=== PATIENT | female | born 1985 | race Asian ===

== ENCOUNTER 2017-05-27 12:58 | Emergency (ER) | payer OTHER ==
[2017-05-27] MEDS ORDERED: Ondansetron INJ* 2 MG/ML VIAL IV ONE (13:17)
[2017-05-27] MEDS ORDERED: Morphine INJ* 2 MG/ML 1 ML CARPUJECT IV ONE (13:17)
[2017-05-27] MEDS ORDERED: NS 0.9% 1000 ML* 1,000 ML IV ONE ×2 (13:24→14:04)
[2017-05-27] MEDS ORDERED: Metoclopramide IV* 5 MG/ML 2 ML VIAL IV SLOW PU ONE (13:25)
[2017-05-27 13:53] LABS: Hematocrit 36 % (35-47); Hemoglobin 12.1 g/dl (12.0-16.0); Mean Corpuscular HGB Conc 34 g/dl (31-36); Mean Corpuscular Hemoglobin 32 pg (27-31); Mean Corpuscular Volume 93 fL (80-97); Mean Platelet Volume 8 um3 (7.4-10.4); Red Blood Count 3.84 10^6/ul (4.0-5.4); Red Cell Distribution Width 14 % (10.5-15); White Blood Count 12.6 10^3/ul (3.5-10.8)
[2017-05-27 13:54] LABS: Add Diff/Slide Review? Slide Review Added; Comments Flag Yes
[2017-05-27 14:04] LABS: Albumin 3.5 g/dL (3.2-5.2); BUN/Creatinine Ratio 17.4 (8-20); C Reactive Protein 1.18 mg/L (< 5.00); Calcium 8.9 mg/dL (8.6-10.3); EGFR African American 201.2 (>60); EGFR Non-African American 156.4 (>60); Globulin 2.9 g/dL (2-4); Potassium 3.4 mmol/L (3.5-5.0); Total Bilirubin 0.4 mg/dL (0.2-1.0); Total Protein 6.4 g/dL (6.4-8.9)
--- NOTE | 2017-05-27 14:45 | ED ---
- HPI Summary HPI Summary: Patient is 34 weeks who presents to the ED with CC of dizziness and nausea since this morning with 1x vomiting. She denies hx of such in her . Denies sick contacts or travel. Denies muscle aches, C/D. Denies cold symptoms including rhinnorhea, cough, chest discomfort, back pain or urinary symptoms. She has been otherwise healthy and has had a healthy . Hx of diabetes, but this is controlled. Never a history of hypotension. Denies vaginal bleeding. OBGYN is Dr. Pat. Continues to feel movement. Eating and drinking OK. - History of Current Complaint Chief Complaint: EDNauseaVomitDiarrh Stated Complaint: 32WKS PREG/VOMITING/DIZZY Time Seen by Provider: 05/27/17 13:05 Hx Obtained From: Patient Onset/Duration: Started Hours Ago Timing: Constant Severity: Mild Current Severity: Moderate Pain Intensity: 0 Location of Pain: None Character: None Associated Signs and Symptoms: Positive: Negative - Assessment SAB: 0 IEA: 0 - Additional Pertinent History Maternal Blood Type and Rh: O Positive - Allergies/Home Medications Allergies/Adverse Reactions: Allergies Allergy/AdvReac Type Severity Reaction Status Date / Time No Known Allergies Allergy Verified 05/27/17 13:11 PMH/Surg Hx/FS Hx/Imm Hx Previously Healthy: Yes - Surgical History Surgery Procedure, Year, and Place: - Immunization History Hx Pertussis Vaccination: No Immunizations Up to Date: Unable to Obtain/Confirm Infectious Disease History: No Infectious Disease History: Denies: Traveled Outside the [place] in Last 30 Days - Social History Occupation: Unemployed Lives: With Family Alcohol Use: None Hx Substance Use: No Substance Use Type: Reports: None Hx Tobacco Use: No Smoking Status (MU): Never Smoked Tobacco Review of Systems Constitutional: Negative Negative: Fever, Chills, Fatigue Eyes: Negative Respiratory: Negative Positive: Nausea. Negative: Abdominal Pain, Vomiting, Diarrhea Genitourinary: Negative Positive: no symptoms reported, see HPI Musculoskeletal: Negative Neurological: Other - dizziness Psychological: Normal All Other Systems Reviewed And Are Negative: Yes Physical Exam - Physical Exam Triage Information Reviewed: Yes Vital Signs Reviewed: Yes Appearance: Positive: Well-Appearing, Well-Nourished Skin: Positive: Warm, Skin Color Reflects Adequate Perfusion Head/Face: Positive: Normal Head/Face Inspection Neck: Positive: Supple, No Lymphadenopathy Respiratory/Lung Sounds: Positive: Clear to Auscultation, Breath Sounds Present Cardiovascular: Positive: RRR, Pulses are Symmetrical in both Upper and Lower Extremities Musculoskeletal: Positive: Normal, Strength/ROM Intact Neurological: Positive: Sensory/Motor Intact, Alert, Oriented to Person Place, Time, Speech Normal Psychiatric: Positive: Normal AVPU Assessment: Alert Diagnostics - Vital Signs Vital Signs Temp Pulse Resp BP Pulse Ox 05/27/17 14:04 80 17 79/41 96 05/27/17 14:00 78 15 65/43 96 05/27/17 13:30 80 5 96/58 94 05/27/17 13:12 90 18 98 05/27/17 13:11 114/61 05/27/17 13:00 98.2 F 67 16 101/59 100 - Laboratory Lab Results: Lab Results 05/27/17 05/27/17 05/27/17 Range/Units 13:40 13:40 13:40 WBC 12.6 H (3.5-10.8) 10^3/ul RBC 3.84 L (4.0-5.4) 10^6/ul Hgb 12.1 (12.0-16.0) g/dl Hct 36 (35-47) % MCV 93 (80-97) fL MCH 32 H (27-31) pg MCHC 34 (31-36) g/dl RDW 14 (10.5-15) % Plt Count 174 (150-450) 10^3/ul MPV 8 (7.4-10.4) um3 Neut % (Auto) 79.0 (38-83) % Lymph % (Auto) 12.5 L (25-47) % Kimble % (Auto) 7.3 (1-9) % Eos % (Auto) 0.6 (0-6) % Baso % (Auto) 0.6 (0-2) % Absolute Neuts (auto) 10.0 H (1.5-7.7) 10^3/ul Absolute Lymphs (auto) 1.6 (1.0-4.8) 10^3/ul Absolute Monos (auto) 0.9 H (0-0.8) 10^3/ul Absolute Eos (auto) 0.1 (0-0.6) 10^3/ul Absolute Basos (auto) 0.1 (0-0.2) 10^3/ul Absolute Nucleated RBC 0.01 10^3/ul Nucleated RBC % 0 Sodium 135 (133-145) mmol/L Potassium 3.4 L (3.5-5.0) mmol/L Chloride 102 (101-111) mmol/L Carbon Dioxide 23 (22-32) mmol/L Anion Gap 10 (2-11) mmol/L BUN 8 (6-24) mg/dL Creatinine 0.46 L (0.51-0.95) mg/dL Est GFR ( Amer) 201.2 (>60) Est GFR (Non-Af Amer) 156.4 (>60) BUN/Creatinine Ratio 17.4 (8-20) Glucose 96 (70-100) mg/dL Lactic Acid 1.7 (0.5-2.0) mmol/L Calcium 8.9 (8.6-10.3) mg/dL Total Bilirubin 0.40 (0.2-1.0) mg/dL AST 15 (13-39) U/L ALT 12 (7-52) U/L Alkaline Phosphatase 121 H (34-104) U/L C-Reactive Protein 1.18 (< 5.00) mg/L Total Protein 6.4 (6.4-8.9) g/dL Albumin 3.5 (3.2-5.2) g/dL Globulin 2.9 (2-4) g/dL Albumin/Globulin Ratio 1.2 (1-3) Lipase 78 (11.0-82.0) U/L Result Diagrams: 05/27/17 13:40 05/27/17 13:40 Lab Statement: Any lab studies that have been ordered have been reviewed, and results considered in the medical decision making process. Course/Dx - Course Course Of Treatment: Patient presents with nausea/vomiting and dizziness. Notes to dizziness since last night which worsened this morning. 1x episode of vomiting. movement remains. BP was noted to be a 69/32. During her course of treatment, she is given 3L fluids which pulled her BP up to 99/50 and 102/54 upon recheck. She is given PO liquids and saltines. Orthostatics are lying 87/38; sitting 103/55; standing 99/56 with no change in HR respectively. She is given Meclizine which is category B and considered safe in . Dizziness improved and patient is OK for discharge. Labs obtained are WNL. She is encouraged to follow up with Dr. Pat's office tomorrow and return to the ED if any symptoms become worse. She is encouraged fluids, salty foods and continue with meclizine if dizziness remains. Reglan given for nausea. She is OK with plan and voices no concerns. - Differential Diagnosis/HQI/PQRI: Other: - hypotension, dizziness, nausea - Diagnoses Provider Diagnoses: Dizziness, Nausea/vomiting in Discharge - Discharge Plan Condition: Stable Disposition: HOME Prescriptions: Meclizine TAB* [Antivert 12.5 TAB*] 25 mg PO TID #12 tab MDD 3 Metoclopramide TAB* [Reglan TAB*] 5 mg PO Q6H #20 tab MDD 4 Patient Education Materials: Dehydration (ED), Hypotension (ED) Referrals: Claribel Hale DESKTOP SUPPORT CONSULTANT [Primary Care Provider] - Additional Instructions: Please call Dr. Pat's office tomorrow As discussed, you are currently having some low blood pressure and dizziness Your labs look OK Your blood pressure increased to an acceptable/normal number with 3 liters of fluids Eat saltines and other salty foods Drink plenty of water Take the meclizine as needed for dizziness Take the reglan as needed for nausea If you develop anything that becomes worse - return to the ED immediately
[2017-05-27] MEDS ORDERED: Meclizine TAB* 12.5 MG PO ONE (16:10)
[2017-05-27 16:56] LABS: Urine Bacteria 1+ (Absent); Urine Bilirubin Negative (Negative); Urine Glucose 1+(50 mg/dL) (Negative); Urine Nitrite Negative (Negative)
[2017-05-27 18:06] VITALS: BP 96/49
== END 2017-05-27 18:13 | disposition home or self-care (01) ==
LOC: ED 12:58
DX: O21.9 Vomiting of pregnancy, unspecified (principal); Z3A.32 32 weeks gestation of pregnancy; R42 Dizziness and giddiness
CPT/HCPCS: 36415; 80053; 81003; 81015; 83605; 83690; 85025; 86140; 87086; 96374; 96375; 99283; A9270-GY; J2270; J2765

== ENCOUNTER 2017-07-06 05:58 | Inpatient (IN) | payer OTHER ==
[~2017-07-06 05:58] MED LIST: Buffered Lidocaine 0.9% SYRIN* 5 ML/SYR SYRINGE INTRADERM ONE; ceFOXitin 2 GM IVPREMIX* 2 GM/50 ML BAG IVPB ONE
[2017-07-06] MEDS ORDERED: Famotidine IV* 10 MG/ML 2 ML (20 mg) IV ONE (06:00)
[2017-07-06] MEDS ORDERED: ceFOXitin 2 GM IVPREMIX* 2 GM/50 ML BAG ONE (06:31)
[2017-07-06] MEDS ORDERED: Famotidine IV* 10 MG/ML 2 ML (20 mg) ONE (06:55)
[2017-07-06] MEDS ORDERED: Scopolamine PATCH Remove* 1 NOTE MISC PATCH OFF PRN (08:27)
[2017-07-06] MEDS ORDERED: DiMENhydriNATE IV* 50 MG/ML VIAL IV PUSH PRN (08:27)
[2017-07-06] MEDS ORDERED: Ondansetron INJ* 2 MG/ML VIAL IV PRN (08:27)
[2017-07-06] MEDS ORDERED: PROCHLORPERAZINE INJ 5 MG/ML 2 ML VIAL IV PRN (08:27)
[2017-07-06] MEDS ORDERED: oxyCODONE/Acetamin 5/325 MG* TAB PO PRN ×2 (08:27→09:10)
[2017-07-06] MEDS ORDERED: Naloxone* 0.4 MG/ML 1 ML VIAL IV PRN (08:27)
[2017-07-06] MEDS ORDERED: fentaNYL* 50 MCG/ML 2 ML VIAL (100 MCG VIAL) IV PRN (08:31)
[2017-07-06] MEDS ORDERED: Tetan/Diph/Pertus SYR(Tdap)* 0.5 ML SYR(BOOSTRIX) use SYR IM ONE (09:10)
[2017-07-06] MEDS ORDERED: Zolpidem TAB* 5 MG PO PRN (09:10)
[2017-07-06] MEDS ORDERED: Glycerin ADULT SUPP PR PRN (09:10)
[2017-07-06] MEDS ORDERED: Witch Hazel PAD* JAR TOPICAL PRN (09:10)
[2017-07-06] MEDS ORDERED: Dibucaine 1% 28.35 GM TUBE PR PRN (09:10)
[2017-07-06] MEDS ORDERED: Acetaminophen TAB* 325 MG PO PRN (09:10)
[2017-07-06] MEDS: Simethicone TAB* 80 MG TAB.CHEW PO SCH ×3 (13:50→20:58)
[2017-07-06] MEDS: Docusate CAP* 100 MG PO SCH ×2 (13:50→20:58)
[2017-07-06] MEDS: Ketorolac INJ* 30 MG/ML 1 ML VIAL IV PRN ×2 (14:35→20:58)
--- NOTE | 2017-07-07 02:21 | OP ---
CC: Dr. Davis of [facility] * DATE OF OPERATION: 07/06/17 - ROOM #[id number] DATE OF : 81 SURGEON: Dr. Pat. AML ANALYST SURGEON: Dr. Davis. ANESTHESIA: Spinal. PRE-OP DIAGNOSES: Intrauterine at 39 weeks, gestational diabetes diet controlled, and a prior section. POST-OP DIAGNOSES: Intrauterine at 39 weeks, gestational diabetes diet controlled, and a prior section. OPERATIVE PROCEDURE: Repeat low transverse section. ESTIMATED BLOOD LOSS: 600 mL. SPECIMEN SENT TO PATHOLOGY: Cord bloods. FLUIDS: She received 4500 cc of IV crystalloid fluid. URINE OUTPUT: Clear. FINDINGS: Delivery of a viable female infant with a weight of 7 pounds 8 ounces with Apgars of 8 and 9 using vacuum licensed nursing assistant. Placenta was grossly intact and a 3-vessel cord noted. The uterus, adnexa, bowel and bladder were all within normal limits. There were no complications. DESCRIPTION OF PROCEDURE: The patient was taken to the operating room where she was identified. She was placed on the operating room table where a spinal anesthetic was obtained without difficulty. She was then placed in a supine position with a leftward tilt, prepped and draped in a normal sterile fashion. A Pfannenstiel skin incision was made with a knife and carried thorough to the underlying layer of fascia. The fascia was nicked in the midline and extended laterally with curved Feldman scissors. The fascia was then grasped superiorly and inferiorly with Pipo clamps and dissected off sharply from the rectus muscle. The rectus muscle was in the midline bluntly. Peritoneum was identified, grasped with pickups, and entered sharply with Metzenbaum scissors and extended superiorly and inferiorly sharply. A bladder blade was inserted into the patient's abdomen. A bladder flap was was then created using Metzenbaum scissors over which the bladder blade was then reinserted. A low transverse uterine incision was made with a knife and extended laterally with bandage scissors. The amniotic sac was ruptured. The infant's head was then grasped. There was difficulty in bringing the head through the incision; therefore, a vacuum was placed in the infant's head to provide assistance with directing the delivery. The head was delivered atraumatically. The vacuum was removed. The nose and mouth were suctioned. The rest of the infants body was then delivered. The cord was clamped and cut. The was handed off to awaiting cleaning machine operator. Cord bloods were obtained. The placenta was removed manually. The uterus was then exteriorized, cleared off all clot and debris using moist laparotomy sponges. The uterine incision was then closed using 0 Polysorb suture in a running locked fashion with a second imbricating layer of 0 Polysorb suture with good hemostasis noted. The uterus was then returned to the patient's abdomen. The abdominal gutters were then cleared off all clot and debris using moist laparotomy sponges. All the sponges were removed through the patient's abdomen. Sponge, lap, needle counts, and instrument count were correct x1. I then proceeded to close the peritoneum using 3-0 Polysorb suture. The fascia was closed using 0 Polysorb suture in a running fashion and the skin was closed with a 4-0 Monocryl subcuticular stitch. The patient tolerated the procedure well. Sponge, lap, and needle counts were correct x2. She was then transferred to the recovery room area in stable condition. [id number]/[facility] [facility] #: [id number] RODO
[2017-07-07] MEDS: Ketorolac INJ* 30 MG/ML 1 ML VIAL IV PRN (03:57)
[2017-07-07] MEDS ORDERED: Ferrous Gluconate TAB* 324 MG TAB PO SCH (09:00)
[2017-07-07] MEDS: Simethicone TAB* 80 MG TAB.CHEW PO SCH ×4 (10:23→20:15)
[2017-07-07] MEDS: Docusate CAP* 100 MG PO SCH ×3 (10:23→20:15)
[2017-07-07] MEDS: Ibuprofen TAB* 600 MG PO PRN ×3 (10:23→23:39)
[2017-07-07 10:41] LABS: Hematocrit 32 % (35-47); Hemoglobin 10.9 g/dl (12.0-16.0); Mean Corpuscular HGB Conc 34 g/dl (31-36); Mean Corpuscular Hemoglobin 32 pg (27-31); Mean Corpuscular Volume 94 fL (80-97); Mean Platelet Volume 8 um3 (7.4-10.4); Red Cell Distribution Width 15 % (10.5-15)
[2017-07-08] MEDS: oxyCODONE/Acetamin 5/325 MG* TAB PO PRN ×3 (00:33→12:34)
[2017-07-08] MEDS: Simethicone TAB* 80 MG TAB.CHEW PO SCH ×2 (08:27→12:34)
[2017-07-08] MEDS: Docusate CAP* 100 MG PO SCH (08:27)
[2017-07-08 08:34] VITALS: BP 90/54
== END 2017-07-08 13:28 | disposition home or self-care (01) | DRG 766 ==
LOC: MCHOB 05:58
PROVIDERS: ADMIT Obstetrics & Gynecology; ATTEND Obstetrics & Gynecology
PROC: 4A1HXCZ Monitoring of Products of Conception, Cardiac Rate, External Approach (ICD-10-PCS; 2017-07-06)
PROC: 10D00Z1 Extraction of Products of Conception, Low, Open Approach (ICD-10-PCS; principal; 2017-07-06 07:45)
DX: O34.211 Maternal care for low transverse scar from previous cesarean delivery (principal); O24.425 Gestational diabetes mellitus in childbirth, controlled by oral hypoglycemic drugs; O69.81X0 Labor and delivery complicated by cord around neck, without compression, not applicable or unspecified; Z37.0 Single live birth; Z3A.39 39 weeks gestation of pregnancy; Z91.040 Latex allergy status
CPT/HCPCS: 36415; 85025; 90715; A9270-GY; J0694; J1885

== ENCOUNTER 2017-11-25 23:40 | Emergency (ER) | payer OTHER ==
[2017-11-26 00:41] LABS: ABS Basophils 0.1 10^3/ul (0-0.2); ABS Eosinophils 0.2 10^3/ul (0-0.6); ABS Lymphocytes 1.7 10^3/ul (1.0-4.8); ABS Monocytes 0.7 10^3/ul (0-0.8); ABS Neutrophils 7.3 10^3/ul (1.5-7.7); ABS Nucleated RBC 0 10^3/ul; Eosinophil % 2.4 % (0-6); Hematocrit 41 % (35-47); Hemoglobin 13.8 g/dl (12.0-16.0); Lymphocyte % 16.6 % (25-47); Mean Corpuscular HGB Conc 34 g/dl (31-36); Mean Corpuscular Hemoglobin 31 pg (27-31); Mean Corpuscular Volume 91 fL (80-97); Mean Platelet Volume 7.9 um3 (7.4-10.4); Nucleated Red Blood Cells % 0.1; Platelet Count 288 10^3/ul (150-450); Red Blood Count 4.43 10^6/ul (4.0-5.4); Red Cell Distribution Width 13 % (10.5-15)
[2017-11-26 00:42] LABS: Urine Appearance Clear; Urine Blood Negative (Negative); Urine Color Straw; Urine Ketones Negative (Negative); Urine Protein Negative (Negative); Urine Specific Gravity 1.009 (1.010-1.030); Urine Urobilinogen Negative (Negative)
[2017-11-26 00:59] LABS: EGFR Non-African American 110.2 (>60)
--- NOTE | 2017-11-26 02:24 | ED ---
Angela Singer Rebecca, scribed for Tyler Vargas MD on 11/26/17 at 0025 . Psychiatric Complaint - HPI Summary HPI Summary: Pt is a 32 y/o F BIBA as a 941 who presents to ED c/o depression and anxiety since yesterday. Additionally notes intermittent SIs when on her way to work. Sx aggravated by a recent argument with her mom, this morning. Pt is at [facility] because a retail property manager called EMS due to her crying. Has had prior instances of anxiety, though she does not take any medication and does not see a therapist. Has been seen by [facility] before for anxiety. - History Of Current Complaint Chief Complaint: EDMentalHealth Time Seen by Provider: 11/26/17 00:19 Hx Obtained From: Patient Hx Last Menstrual Period: ~1 WEEK AGO Onset/Duration: Lasting Days - 2 days, Still Present Character: Depressed, Anxious Aggravating Factor(s): Recent Stress Associated Signs And Symptoms: Positive: Negative Related History: Positive For: Prior Psychiatric Issues - Anxiety Has Suicidal: Reports: Thoughts - Intermittent - not currently - Allergies/Home Medications Allergies/Adverse Reactions: Allergies Allergy/AdvReac Type Severity Reaction Status Date / Time latex Allergy Rash Verified 11/25/17 23:52 PMH/Surg Hx/FS Hx/Imm Hx Endocrine/Hematology History: Denies: Hx Diabetes Cardiovascular History: Denies: Hx Hypertension - Surgical History Surgery Procedure, Year, and Place: Infectious Disease History: Unable to Obtain/Confirm Infectious Disease History: Denies: Traveled Outside the [place] in Last 30 Days - Family History Known Family History: Negative: Diabetes - Social History Alcohol Use: None Hx Substance Use: No Substance Use Type: Reports: None Hx Tobacco Use: No Smoking Status (MU): Never Smoked Tobacco Review of Systems Negative: Fever Positive: Anxious, Depressed, Other - Intermittent SIs All Other Systems Reviewed And Are Negative: Yes Physical Exam - Summary Physical Exam Summary: Appearance: Well appearing, no pain distress Skin: warm, dry, reflects adequate perfusion Head/face: normal Eyes: EOMI, DEANDRE ENT: normal, mucous membranes moist Neck: supple, non-tender Respiratory: CTA, breath sounds present Cardiovascular: RRR, pulses symmetrical Musculoskeletal: normal, strength/ROM intact Neuro: normal, sensory motor intact, A&Ox3 Psych: Flat affect, no anxiety, no SI or HI currently Triage Information Reviewed: Yes Vital Signs On Initial Exam: Initial Vitals Temp Pulse Resp BP Pulse Ox 97.4 F 96 16 97/80 100 11/25/17 23:48 11/25/17 23:48 11/25/17 23:48 11/25/17 23:48 11/25/17 23:48 Vital Signs Reviewed: Yes Diagnostics - Vital Signs Vital Signs Temp Pulse Resp BP Pulse Ox 11/25/17 23:48 97.4 F 96 16 97/80 100 - Laboratory Lab Results: Lab Results 11/26/17 11/26/17 11/26/17 Range/Units 00:25 00:25 00:25 WBC 10.0 (3.5-10.8) 10^3/ul RBC 4.43 (4.0-5.4) 10^6/ul Hgb 13.8 (12.0-16.0) g/dl Hct 41 (35-47) % MCV 91 (80-97) fL MCH 31 (27-31) pg MCHC 34 (31-36) g/dl RDW 13 (10.5-15) % Plt Count 288 (150-450) 10^3/ul MPV 7.9 (7.4-10.4) um3 Neut % (Auto) 72.8 (38-83) % Lymph % (Auto) 16.6 L (25-47) % Dorado % (Auto) 7.4 H (0-7) % Eos % (Auto) 2.4 (0-6) % Baso % (Auto) 0.8 (0-2) % Absolute Neuts (auto) 7.3 (1.5-7.7) 10^3/ul Absolute Lymphs (auto) 1.7 (1.0-4.8) 10^3/ul Absolute Monos (auto) 0.7 (0-0.8) 10^3/ul Absolute Eos (auto) 0.2 (0-0.6) 10^3/ul Absolute Basos (auto) 0.1 (0-0.2) 10^3/ul Absolute Nucleated RBC 0 10^3/ul Nucleated RBC % 0.1 Sodium 137 L (139-145) mmol/L Potassium 3.5 (3.5-5.0) mmol/L Chloride 100 L (101-111) mmol/L Carbon Dioxide 28 (22-32) mmol/L Anion Gap 9 (2-11) mmol/L BUN 13 (6-24) mg/dL Creatinine 0.62 (0.51-0.95) mg/dL Est GFR ( Amer) 141.7 (>60) Est GFR (Non-Af Amer) 110.2 (>60) BUN/Creatinine Ratio 21.0 H (8-20) Glucose 106 H (70-100) mg/dL Calcium 9.7 (8.6-10.3) mg/dL Total Bilirubin 0.60 (0.2-1.0) mg/dL AST 22 (13-39) U/L ALT 24 (7-52) U/L Alkaline Phosphatase 61 (34-104) U/L Total Protein 7.9 (6.4-8.9) g/dL Albumin 4.7 (3.2-5.2) g/dL Globulin 3.2 (2-4) g/dL Albumin/Globulin Ratio 1.5 (1-3) TSH 1.69 (0.34-5.60) mcIU/mL Beta HCG, Quant < 0.60 mIU/mL Urine Color Urine Appearance Urine pH (5-9) Ur Specific Lyndon (1.010-1.030) Urine Protein (Negative) Urine Ketones (Negative) Urine Blood (Negative) Urine Nitrate (Negative) Urine Bilirubin (Negative) Urine Urobilinogen (Negative) Ur Leukocyte Esterase (Negative) Urine Glucose (Negative) Urine Ascorbic Acid (Negative) Salicylates < 2.50 (<30) mg/dL Urine Opiates Screen None detected (None Detect) Acetaminophen < 15 mcg/mL Ur Barbiturates Screen None detected (None Detect) Ur Phencyclidine Scrn None detected (None Detect) Ur Amphetamines Screen None detected (None Detect) U Benzodiazepines Scrn None detected (None Detect) Urine Cocaine Screen None detected (None Detect) U Cannabinoids Screen None detected (None Detect) Serum Alcohol < 10 (<10) mg/dL 11/26/17 Range/Units 00:25 WBC (3.5-10.8) 10^3/ul RBC (4.0-5.4) 10^6/ul Hgb (12.0-16.0) g/dl Hct (35-47) % MCV (80-97) fL MCH (27-31) pg MCHC (31-36) g/dl RDW (10.5-15) % Plt Count (150-450) 10^3/ul MPV (7.4-10.4) um3 Neut % (Auto) (38-83) % Lymph % (Auto) (25-47) % Dorado % (Auto) (0-7) % Eos % (Auto) (0-6) % Baso % (Auto) (0-2) % Absolute Neuts (auto) (1.5-7.7) 10^3/ul Absolute Lymphs (auto) (1.0-4.8) 10^3/ul Absolute Monos (auto) (0-0.8) 10^3/ul Absolute Eos (auto) (0-0.6) 10^3/ul Absolute Basos (auto) (0-0.2) 10^3/ul Absolute Nucleated RBC 10^3/ul Nucleated RBC % Sodium (139-145) mmol/L Potassium (3.5-5.0) mmol/L Chloride (101-111) mmol/L Carbon Dioxide (22-32) mmol/L Anion Gap (2-11) mmol/L BUN (6-24) mg/dL Creatinine (0.51-0.95) mg/dL Est GFR ( Amer) (>60) Est GFR (Non-Af Amer) (>60) BUN/Creatinine Ratio (8-20) Glucose (70-100) mg/dL Calcium (8.6-10.3) mg/dL Total Bilirubin (0.2-1.0) mg/dL AST (13-39) U/L ALT (7-52) U/L Alkaline Phosphatase (34-104) U/L Total Protein (6.4-8.9) g/dL Albumin (3.2-5.2) g/dL Globulin (2-4) g/dL Albumin/Globulin Ratio (1-3) TSH (0.34-5.60) mcIU/mL Beta HCG, Quant mIU/mL Urine Color Straw Urine Appearance Clear Urine pH 6.0 (5-9) Ur Specific Lyndon 1.009 L (1.010-1.030) Urine Protein Negative (Negative) Urine Ketones Negative (Negative) Urine Blood Negative (Negative) Urine Nitrate Negative (Negative) Urine Bilirubin Negative (Negative) Urine Urobilinogen Negative (Negative) Ur Leukocyte Esterase Negative (Negative) Urine Glucose Negative (Negative) Urine Ascorbic Acid * A (Negative) Salicylates (<30) mg/dL Urine Opiates Screen (None Detect) Acetaminophen mcg/mL Ur Barbiturates Screen (None Detect) Ur Phencyclidine Scrn (None Detect) Ur Amphetamines Screen (None Detect) U Benzodiazepines Scrn (None Detect) Urine Cocaine Screen (None Detect) U Cannabinoids Screen (None Detect) Serum Alcohol (<10) mg/dL Result Diagrams: 11/26/17 00:25 11/26/17 00:25 Lab Statement: Any lab studies that have been ordered have been reviewed, and results considered in the medical decision making process. Course/Dx - Course Assessment/Plan: Pt is a 32 y/o F BIBA as a 941 for depression and anxiety with intermittent SIs when driving to work for the last 2 days, aggravated by recent stress at home. Has had prior episodes of anxiety for which she is not on medication or seeing a therapist. Medically cleared for MHE at 0053. Upon completion of MHE and consultation with Dr. Brown, it has been determined that the pt will be D/C to home. - Differential Dx/Clinical Impression Differential Diagnosis/HQI/PQRI: Positive: Anxiety, Depression, Suicidal Ideation Provider Diagnosis: Adjustment disorder Discharge - Sign-Out/Discharge Documenting (check all that apply): Discharge/Admit/Transfer - Discharge - Discharge Plan Condition: Stable Disposition: HOME Referrals: Claribel Hale NP [Primary Care Provider] - - Billing Disposition and Condition Condition: STABLE Disposition: HOME The documentation as recorded by the Angela collado Rebecca accurately reflects the service I personally performed and the decisions made by , Tyler Vargas MD.
[2017-11-26 03:43] VITALS: BP 103/66
== END 2017-11-26 01:50 | disposition home or self-care (01) ==
LOC: ED 23:45
DX: F43.20 Adjustment disorder, unspecified (principal)
CPT/HCPCS: 36415; 80053; 80307; 80320; 80329; 81003; 84443; 84702; 85025; 99285; G0480

== ENCOUNTER 2019-02-06 14:45 | Emergency (ER) | payer OTHER ==
[2019-02-06 15:07] VITALS: BP 104/66
--- NOTE | 2019-02-06 15:36 | UC ---
Complaint Female HPI - HPI Summary HPI Summary: 33 yo female with 5 day hx of dysuria/urgency and frequency Has suprapubic pain no vaginal d/c or itch no f/c no back pain no hx UTI - History Of Current Complaint Chief Complaint: UCGU Stated Complaint: FREQUENT URINATION Time Seen by Provider: 02/06/19 15:29 Hx Obtained From: Patient Hx Last Menstrual Period: January 21 Onset/Duration: Sudden Onset, Lasting Minutes Timing: Intermittent, Lasting Minutes Severity Initially: Moderate Severity Currently: None Pain Intensity: 0 - 6/10 with urination Pain Scale Used: 0-10 Numeric Character: Burning Aggravating Factor(s): Urination Alleviating Factor(s): Nothing Associated Signs And Symptoms: Positive: Negative - Allergies/Home Medications Allergies/Adverse Reactions: Allergies Allergy/AdvReac Type Severity Reaction Status Date / Time latex Allergy Rash Verified 02/06/19 15:07 PMH/Surg Hx/FS Hx/Imm Hx Previously Healthy: Yes - Surgical History Surgical History: Yes Surgery Procedure, Year, and Place: . wisdom teeth - Family History Known Family History: Positive: Hypertension Negative: Diabetes - Social History Alcohol Use: Occasionally Substance Use Type: None Smoking Status (MU): Never Smoked Tobacco - Immunization History Most Recent Influenza Vaccination: recieved 2017 Most Recent Tetanus Shot: 2007 Most Recent Pneumonia Vaccination: never Review of Systems All Other Systems Reviewed And Are Negative: Yes Constitutional: Positive: Negative Skin: Positive: Negative Eyes: Positive: Negative ENT: Positive: Negative Respiratory: Positive: Negative Cardiovascular: Positive: Negative Gastrointestinal: Positive: Abdominal Pain - suprapubic oint Genitourinary: Positive: Dysuria, Frequency, Urgency. Negative: Hematuria, Vaginal/Penile Burning, Vaginal/Penile Itching, Vaginal/Penile Discharge, Vaginal/Penile Pain, Vaginal/Penile Tenderness, Ulceration/Lesion, Abnormal Bleeding Motor: Positive: Negative Neurovascular: Positive: Negative Musculoskeletal: Positive: Negative Neurological: Positive: Negative Psychological: Positive: Negative Physical Exam Triage Information Reviewed: Yes Appearance: Well-Appearing, No Pain Distress, Well-Nourished Vital Signs: Initial Vital Signs Temp 97.6 F 02/06/19 15:02 Pulse 74 02/06/19 15:02 Resp 14 02/06/19 15:02 BP 104/66 02/06/19 15:02 Pulse Ox 98 02/06/19 15:02 Vital Signs Reviewed: Yes Eyes: Positive: Conjunctiva Clear ENT: Positive: Hearing grossly normal. Negative: Nasal congestion, Nasal drainage, Tonsillar swelling, Tonsillar exudate, Trismus, Hoarse voice Dental Exam: Normal Neck: Positive: Supple, Nontender, No Lymphadenopathy Respiratory: Positive: Lungs clear, Normal breath sounds, No respiratory distress, No accessory muscle use Cardiovascular: Positive: RRR, No Murmur Abdomen Description: Negative: Nontender - slight suprapubic tenderness Bowel Sounds: Positive: Present Musculoskeletal Exam: Normal Neurological: Positive: Alert Psychological Exam: Normal Skin Exam: Normal Complaint Female Dx - Differential Dx/Diagnosis Provider Diagnosis: Acute cystitis Discharge - Sign-Out/Discharge Documenting (check all that apply): Patient Departure All imaging exams completed and their final reports reviewed: No Studies - Discharge Plan Condition: Stable Disposition: HOME Prescriptions: Cephalexin CAP* [Keflex CAP*] 500 mg PO BID #13 cap Phenazopyridine TAB* [Pyridium TAB*] 100 mg PO TID #6 tab Patient Education Materials: Urinary Tract Infection in Women (ED) Referrals: Claribel Hale NP [Primary Care Provider] - If Needed Additional Instructions: recheck in 2-3 days if not better a urine culture is pending - Billing Disposition and Condition Condition: STABLE Disposition: Home
[2019-02-06] MEDS ORDERED: Cephalexin CAP* 500 MG PO ONE (15:38)
[2019-02-06] MEDS ORDERED: Phenazopyridine TAB* 100 MG PO ONE (15:39)
== END 2019-02-06 16:10 | disposition home or self-care (01) ==
LOC: UCEAST 14:45
DX: N30.00 Acute cystitis without hematuria (principal); Z91.040 Latex allergy status
CPT/HCPCS: 81003; 87077; 87086; 87186; 99212; A9270-GY; G0463